=== PATIENT | female | born 1995 | race Caucasian/White ===

== ENCOUNTER → 2020-01-09 16:12 | Observation (INO) ==
[2020-01-09 13:21] LABS: Basophils # 0.1 K/mcL (0.0-0.2); Basophils % 0.4 %; Eosinophils # 0.1 K/mcL (0.0-0.6); Eosinophils % 0.8 %; Immature Granulocytes % 0.6 % (0-4); Lymphocytes # 1.7 K/mcL (0.6-4.6); Lymphocytes % 12.1 %; Mean Corpuscular HGB Conc 34.2 g/dL (31.6-35.5); Mean Corpuscular Hemoglobin 33.9 pg (28.0-33.3); Mean Corpuscular Volume 99.2 fL (83.0-100.0); Mean Platelet Volume 13.8 fL (9.4-12.4); Monocytes # 1.2 K/mcL (0.0-1.3); Monocytes % 8.2 %; Neutrophils # 11.1 K/mcL (1.6-8.9); Platelet Count 164 K/mcL (140-400); Red Blood Count 3.83 M/mcL (3.82-4.97); Red Cell Distribution Width 11.8 % (11.5-14.5); Segmented Neutrophils % 77.9 %; White Blood Count 14.3 K/mcL (4.3-11.1)
[2020-01-09 13:44] LABS: Platelet Estimate Normal (Normal)
[~2020-01-09 16:12] MED LIST: *HR* Propofol 200 MG/20 ML VIAL IVP ONE; Ringers Solution, Lactated 1,000 ML ONE; Terbutaline 1 MG/ML VIAL SQ ONE
== END | disposition home or self-care (01) ==
LOC: 1NENULAB
PROVIDERS: ADMIT Obstetrics & Gynecology; ATTEND Obstetrics & Gynecology

== ENCOUNTER 2020-01-16 15:39 | Inpatient (IN) ==
[2020-01-16] MEDS ORDERED: Metoclopramide 10 MG/2 ML VIAL IVP ONE (15:44)
[2020-01-16] MEDS ORDERED: Ringers Solution, Lactated 1,000 ML IVC ONE (15:44)
[2020-01-16] MEDS ORDERED: Clindamycin 900 MG/50 ML 900 MG/50 ML IV.SOLN IVPB ONE (15:44)
[2020-01-16] MEDS ORDERED: Famotidine 20 MG/2 ML VIAL IVP ONE (15:44)
[2020-01-16] MEDS ORDERED: Ringers Solution, Lactated 1,000 ML IVC SCH ×2 (15:45→22:23)
[2020-01-16] MEDS ORDERED: Gentamicin 80 MG in 0.9 % Sodium Chloride 100 ML IVPB ONE (16:30)
[2020-01-16 16:45] LABS: Basophils % 0.2 %; Eosinophils # 0.1 K/mcL (0.0-0.6); Eosinophils % 0.4 %; Hematocrit 38.4 % (35.3-44.9); Hemoglobin 13.3 g/dL (11.5-15.4); Immature Granulocytes % 0.7 % (0-4); Immature Platelets 16.7 % (1.1-6.1); Lymphocytes # 1.7 K/mcL (0.6-4.6); Lymphocytes % 10.4 %; Mean Corpuscular HGB Conc 34.6 g/dL (31.6-35.5); Mean Corpuscular Volume 98.2 fL (83.0-100.0); Mean Platelet Volume 12.7 fL (9.4-12.4); Monocytes # 1.4 K/mcL (0.0-1.3); Monocytes % 8.4 %; Neutrophils # 13.2 K/mcL (1.6-8.9); Platelet Count 167 K/mcL (140-400); Red Blood Count 3.91 M/mcL (3.82-4.97); Red Cell Distribution Width 11.8 % (11.5-14.5); Segmented Neutrophils % 79.9 %; White Blood Count 16.5 K/mcL (4.3-11.1)
[2020-01-16 16:56] LABS: Amphetamine Screen,Urine Negative ng/mL (Cutoff=1000); Barbiturate Screen,Urine Negative ng/mL (Cutoff=200); Benzodiazepines Screen,Urine Negative ng/mL (Cutoff=200); Cannabinoid Screen,Urine Negative ng/mL (Cutoff = 50); Cocaine Screen,Urine Negative ng/mL (Cutoff= 300); Opiate Screen,Urine Negative ng/mL (Cutoff=300); Phencyclidine Screen,Urine Negative ng/mL (Cutoff=25)
[2020-01-16] MEDS ORDERED: *HR* Morphine Sulfate/PF 10 MG/10 ML AMPUL ONE (18:52)
[2020-01-16] MEDS ORDERED: *HR* FentaNYL (PF) 100 MCG/2 ML VIAL ONE (18:53)
[2020-01-16] MEDS ORDERED: *HR* Oxytocin 10 UNIT/ML VIAL IM ONE (18:54)
[2020-01-16] MEDS ORDERED: *HR* Midazolam HCl 2 MG/2 ML VIAL ONE (18:54)
[2020-01-16] MEDS ORDERED: Ringers Solution, Lactated 1,000 ML ONE (19:04)
[2020-01-16] MEDS ORDERED: Ondansetron 4 MG/2 ML VIAL ONE (19:06)
[2020-01-16] MEDS ORDERED: Ketorolac 30 MG/ML VIAL ONE (19:24)
[2020-01-16] MEDS ORDERED: Acetaminophen IV 1,000 MG/100 ML INFUS..BTL ONE (19:24)
[2020-01-16] MEDS ORDERED: *HR* Promethazine 25 MG/ML VIAL IVP PRN (19:31)
[2020-01-16] MEDS ORDERED: *HR* OxyCODONE Immed Rel 5 MG TABLET PO PRN (19:31)
[2020-01-16] MEDS ORDERED: Oxytocin 20 units/ LR 1000 mL 20 UNIT/1,000 ML BAG IVC ONE (20:32)
[2020-01-16] MEDS ORDERED: Sennosides 8.6 MG TABLET PO PRN (22:23)
[2020-01-16] MEDS ORDERED: Metoclopramide 10 MG/2 ML VIAL IVP PRN (22:23)
[2020-01-16] MEDS ORDERED: Ondansetron 4 MG/2 ML VIAL IVP PRN (22:23)
[2020-01-16] MEDS ORDERED: Oxytocin 20 units/ LR 1000 mL 20 UNIT/1,000 ML BAG IVC SCH (22:23)
[2020-01-16] MEDS ORDERED: *HR* OxyCODONE/APAP 5/325 TABLET PO PRN (22:23)
[2020-01-16] MEDS ORDERED: Rho Immune Globulin 1,500 UNIT SYRINGE IM PRN (22:23)
[2020-01-16] MEDS ORDERED: Simethicone 80 MG TAB.CHEW PO PRN (22:23)
[2020-01-16] MEDS: Oxytocin 20 units/ LR 1000 mL 20 UNIT/1,000 ML BAG IVC SCH (23:03)
[2020-01-17 04:55] LABS: Basophils # 0.1 K/mcL (0.0-0.2); Basophils % 0.4 %; Eosinophils # 0.1 K/mcL (0.0-0.6); Eosinophils % 0.6 %; Hematocrit 30.4 % (35.3-44.9); Immature Granulocytes % 0.4 % (0-4); Lymphocytes # 1.4 K/mcL (0.6-4.6); Lymphocytes % 8.5 %; Mean Corpuscular HGB Conc 34.5 g/dL (31.6-35.5); Mean Corpuscular Hemoglobin 34.9 pg (28.0-33.3); Monocytes # 1.3 K/mcL (0.0-1.3); Monocytes % 7.4 %; Neutrophils # 14.1 K/mcL (1.6-8.9); Platelet Count 130 K/mcL (140-400); Red Blood Count 3.01 M/mcL (3.82-4.97); Red Cell Distribution Width 11.8 % (11.5-14.5); Segmented Neutrophils % 82.7 %
[2020-01-17 05:00] LABS: Hemoglobin 10.5 g/dL (11.5-15.4)
[2020-01-17] MEDS: Ibuprofen 600 MG TABLET PO PRN ×4 (05:19→23:10)
[2020-01-17] MEDS: Oxytocin 20 units/ LR 1000 mL 20 UNIT/1,000 ML BAG IVC SCH (05:21)
[2020-01-17] MEDS: Prenatal Vit/FA 1 EACH TABLET PO SCH (07:32)
[2020-01-18] MEDS: Ibuprofen 600 MG TABLET PO PRN (06:56)
[2020-01-18 06:58] LABS: Basophils # 0.1 K/mcL (0.0-0.2); Basophils % 0.4 %; Eosinophils # 0.3 K/mcL (0.0-0.6); Eosinophils % 2.1 %; Hematocrit 30.5 % (35.3-44.9); Hemoglobin 10.2 g/dL (11.5-15.4); Immature Granulocytes % 0.6 % (0-4); Lymphocytes # 1.9 K/mcL (0.6-4.6); Lymphocytes % 15.2 %; Mean Corpuscular HGB Conc 33.4 g/dL (31.6-35.5); Mean Corpuscular Hemoglobin 33.6 pg (28.0-33.3); Mean Corpuscular Volume 100.3 fL (83.0-100.0); Monocytes # 1.1 K/mcL (0.0-1.3); Monocytes % 8.7 %; Platelet Count 148 K/mcL (140-400); Red Blood Count 3.04 M/mcL (3.82-4.97); Red Cell Distribution Width 11.9 % (11.5-14.5); White Blood Count 12.3 K/mcL (4.3-11.1)
[2020-01-18] MEDS: Prenatal Vit/FA 1 EACH TABLET PO SCH (07:34)
[2020-01-18 07:41] VITALS: BP 123/87
== END 2020-01-18 12:40 | disposition home or self-care (01) | DRG 540 ==
LOC: 1NENULAB 15:39 → 1NENUOBS 22:23
PROVIDERS: ADMIT Obstetrics & Gynecology; ATTEND Obstetrics & Gynecology